=== PATIENT | female | born 1995 | race Caucasian/White ===

== ENCOUNTER → 2018-05-30 16:37 | Outpatient (CLI) | payer BC, OTHER, SELFPAY | PROVIDERS: Visit Provider Obstetrics & Gynecology | DX: Z12.4 Encounter for screening for malignant neoplasm of cervix (principal) | CPT/HCPCS: 88175; G0145 ==

== ENCOUNTER → 2019-06-03 | Outpatient (CLI) | payer BC, OTHER, SELFPAY ==
[2019-06-11 12:57] LABS: HPV Reflexed? NOT INDICATED
== END | disposition home or self-care (01) ==
LOC: LABSPEC 15:11
PROVIDERS: Visit Provider Obstetrics & Gynecology
DX: Z12.4 Encounter for screening for malignant neoplasm of cervix (principal)
CPT/HCPCS: 87624; 88175; G0145

== ENCOUNTER → 2020-06-08 13:19 | Outpatient (CLI) | payer BC, OTHER, SELFPAY ==
[2020-06-10 14:18] LABS: HPV Reflexed? NOT INDICATED
== END ==
PROVIDERS: Visit Provider Obstetrics & Gynecology
DX: R87.612 Low grade squamous intraepithelial lesion on cytologic smear of cervix (LGSIL) (principal); Z12.4 Encounter for screening for malignant neoplasm of cervix
CPT/HCPCS: 88175; G0145

== ENCOUNTER → 2020-09-16 18:19 | Outpatient (CLI) | payer BC, OTHER, SELFPAY | DX: U07.1 COVID-19 (principal) | CPT/HCPCS: 87635; C9803; U0003 ==

== ENCOUNTER → 2021-06-26 | Outpatient (CLI) | payer BC, OTHER, SELFPAY ==
[2021-06-27 20:08] LABS: Chlamydia By Nucleic Acid AMP Negative (Negative)
[2021-06-27 20:19] LABS: Gonococcus By Nucleic Acid AMP Negative (Negative)
== END | disposition home or self-care (01) ==
LOC: LABSPEC 10:30
PROVIDERS: Visit Provider Obstetrics & Gynecology
DX: R30.0 Dysuria (principal); Z11.3 Encounter for screening for infections with a predominantly sexual mode of transmission
CPT/HCPCS: 87086; 87491; 87591

== ENCOUNTER → 2021-08-18 | Outpatient (CLI) | payer BC, OTHER, SELFPAY ==
[2021-08-25 09:30] LABS: HPV Reflexed? NOT INDICATED
== END | disposition home or self-care (01) ==
LOC: LABSPEC 14:57
PROVIDERS: Visit Provider Obstetrics & Gynecology
DX: Z12.4 Encounter for screening for malignant neoplasm of cervix (principal)
CPT/HCPCS: 88175; G0145

== ENCOUNTER → 2021-08-29 08:52 | Outpatient (CLI) | payer BC, OTHER, SELFPAY ==
[2021-08-29 11:09] LABS: Estradiol 42.5 pg/mL; Free T3 3.2 pg/mL (2.18-3.98); Luteinizing Hormone 7.7 mIU/mL; Prolactin 18.3 ng/mL; T4 Free Direct 1.06 ng/dL (0.76-1.46); Thyroid Stim Hormone (TSH) 1.68 uIU/mL (0.358-3.74)
[2021-08-30 13:43] LABS: Sex Hormone-binding Globulin 82.3 nmol/L (24.6-122.0)
== END ==
PROVIDERS: Visit Provider Obstetrics & Gynecology
DX: E28.9 Ovarian dysfunction, unspecified (principal); N92.6 Irregular menstruation, unspecified
CPT/HCPCS: 36415; 82627; 82670; 83001; 83002; 84146; 84270; 84403; 84439; 84443; 84481; 82626

== ENCOUNTER → 2021-09-14 08:58 | Outpatient (CLI) | payer BC, OTHER, SELFPAY ==
[2021-09-14 10:14] LABS: Progesterone Level 13.96 ng/mL (See Comment)
[2021-09-14 10:26] LABS: Prolactin 14.2 ng/mL
== END ==
LOC: LAB 08:59
PROVIDERS: Referring Provider Obstetrics & Gynecology; Visit Provider Obstetrics & Gynecology
DX: N92.6 Irregular menstruation, unspecified (principal); E22.1 Hyperprolactinemia
CPT/HCPCS: 36415; 84144; 84146

== ENCOUNTER → 2021-09-27 | Outpatient (CLI) | payer BC, OTHER, SELFPAY | END | disposition home or self-care (01) | LOC: LABSPEC 14:49 | PROVIDERS: Visit Provider Obstetrics & Gynecology | DX: R30.0 Dysuria (principal) | CPT/HCPCS: 87086; 87088 ==